=== PATIENT | female | born 2000 | race African-American/Black ===

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

== ENCOUNTER 2022-04-16 15:16 | Emergency (ER) | payer MEDICAID ==
[~2022-04-16] VITALS: Ht 157.5 cm; Wt 57.0 kg
[~2022-04-16 15:16] MED LIST: COM10 MT; FAMO-135 MT; FAMO40TA70 MT; IBUP-2028 PO; MAG355OR21 MT; ONDA4TAB5 MT; T3 PO
[2022-04-16] MEDS ORDERED: HYDROCODONE/ACETAMINOPHEN 5/325MG TABLET PO ONE (17:30)
[2022-04-16] MEDS ORDERED: IBUP-2029 MT ×2 (18:14→19:19)
[2022-04-16] MEDS ORDERED: CHLO473M2 MT ×2 (18:14→19:19)
[2022-04-16] MEDS ORDERED: T3 PO ×2 (18:14→19:19)
[2022-04-16] MEDS ORDERED: AMOX-494 MT ×2 (18:14→19:19)
[2022-04-16 18:35] VITALS: BP 122/65
== END 2022-04-16 18:35 | disposition home or self-care (01) ==
LOC: ER 16:34
DX: K08.89 Other specified disorders of teeth and supporting structures (principal); F12.10 Cannabis abuse, uncomplicated; Z79.899 Other long term (current) drug therapy
CPT/HCPCS: 81025; 99283